=== PATIENT | female | born 1970 | race Asian ===

== ENCOUNTER 2017-04-15 16:27 | Emergency (ER) | payer BC, OTHER ==
[2017-04-15 16:35] VITALS: BP 152/91
--- NOTE | 2017-04-15 18:04 | UC ---
Complaint Female HPI - HPI Summary HPI Summary: 46 yo female with a 4-6 day hx of vaginal pressure/pain no d/c or itch no dysuria/urgency or frequency she had a hysterectomy about 2 yrs ago- indication- lg fibroid and menorrhagia - History Of Current Complaint Chief Complaint: UCGU Stated Complaint: GROIN & VAGINAL PAIN Time Seen by Provider: 04/15/17 17:42 Hx Obtained From: Patient Hx Last Menstrual Period: 06/26- Onset/Duration: Gradual Onset, Lasting Days Timing: Constant Severity Initially: Mild Severity Currently: Mild Pain Intensity: 3 Pain Scale Used: 0-10 Numeric Character: Dull Aggravating Factor(s): [place] Alleviating Factor(s): Position Associated Signs And Symptoms: Negative: Fever, Back Pain, Vaginal Bleeding/ Discharge, Vaginal Discharge, Nausea, Vomiting(# Of Episodes =), Genital Swelling, Genital Blisters, Retained [place] Body (Specify) - Allergies/Home Medications Allergies/Adverse Reactions: Allergies Allergy/AdvReac Type Severity Reaction Status Date / Time No Known Allergies Allergy Verified 04/15/17 16:35 Home Medications: Home Medications Multiple Vitamin [Multivitamins] 1 tab PO DAILY 04/15/17 [History Confirmed 12/25] PMH/Surg Hx/FS Hx/Imm Hx Previously Healthy: Yes Cardiovascular History: Hypertension - not treated - Surgical History Surgical History: None - Family History Known Family History: Positive: Cardiac Disease, Hypertension - Social History Alcohol Use: None Substance Use Type: None Smoking Status (MU): Never Smoked Tobacco Review of Systems Constitutional: Negative Skin: Negative Eyes: Negative ENT: Negative Respiratory: Negative Cardiovascular: Negative Gastrointestinal: Negative Genitourinary: Negative Motor: Negative Neurovascular: Negative Musculoskeletal: Negative Neurological: Negative Psychological: Negative Is Patient Immunocompromised?: No All Other Systems Reviewed And Are Negative: Yes Physical Exam Triage Information Reviewed: Yes Appearance: Well-Appearing, No Pain Distress, Well-Nourished Vital Signs: Initial Vital Signs Temp 98.5 F 04/15/17 16:32 Pulse 91 04/15/17 16:32 Resp 18 04/15/17 16:32 BP 152/91 04/15/17 16:32 Pulse Ox 100 04/15/17 16:32 Eyes: Positive: Conjunctiva Clear ENT: Positive: Hearing grossly normal. Negative: Nasal congestion, Nasal drainage, Tonsillar exudate, Trismus, Muffled/hoarse voice Neck: Positive: Supple, Nontender Respiratory: Positive: Lungs clear, Normal breath sounds, No respiratory distress, No accessory muscle use Cardiovascular: Positive: RRR, No Murmur Abdomen Description: Positive: Nontender, No Organomegaly, Soft. Negative: CVA Tenderness (R), CVA Tenderness (L) Musculoskeletal: Positive: ROM Intact, No Edema Neurological: Positive: Alert Psychological Exam: Normal Skin Exam: Normal Complaint Female Dx - Course Course Of Treatment: Pelvic exam done by Bridgett Rosenberg NP. ext gen normal. scant whitish d/c. absent cervix/uterus. no adenexal mass - Differential Dx/Diagnosis Provider Diagnoses: vaginal pain of uncertain cause Discharge - Discharge Plan Condition: Stable Disposition: HOME Patient Education Materials: Pelvic Pain (ED) Additional Instructions: unsure of the cause of your symptoms your BP was high today and should be rechecked by your provider you should she your provider for follow up of your vagina pressure tests are pending
--- NOTE | 2017-04-15 18:18 | UC ---
Progress - Progress Note Progress Note: call Patient Stop Keflex---Bactrim called in to pharmacy for patient Shawanda SALMON-C
== END 2017-04-15 18:25 | disposition home or self-care (01) ==
LOC: UCEAST 16:27
DX: R10.2 Pelvic and perineal pain (principal); I10 Essential (primary) hypertension
CPT/HCPCS: 87480; 87491; 87510; 87591; 87661; 99202; G0463

== ENCOUNTER 2017-08-28 11:26 | Emergency (ER) | payer BC ==
[2017-08-28 12:46] VITALS: BP 161/96
--- NOTE | 2017-08-28 13:09 | UC ---
Abdominal Pain Female HPI - HPI Summary HPI Summary: Patient presents with a past medical history of hypothyroidism. She presents with complaints of epigastrium pain onset yesterday afternoon after she ate, with associated nausea, vomited x 2, diarrhea x 2. She states the pain was severe last night, and is less severe at this time. She also reports burping. She states the pain is non-radiating. She reports she was not able to eat since yesterday, and is not tolerating anything by mouth. She denies recorded or tactile fever, chills, chest pain, dyspnea, productive cough, recent travel, or ill contact. s - History of Current Complaint Chief Complaint: UCGI Stated Complaint: ABD PAIN BURPING Time Seen by Provider: 08/28/17 12:57 Hx Obtained From: Patient Hx Last Menstrual Period: NA Onset/Duration: Sudden Onset, Lasting Hours Timing: Constant Severity Currently: Moderate Pain Intensity: 6 Location: Epigastric Radiates: No Character: Sharp Aggravating Factor(s): Movement, Deep Breaths Alleviating Factor(s): Vomiting Associated Signs and Symptoms: Positive: Nausea, Vomiting, Diarrhea - Risk Factors Ectopic Risk Factor: Negative Allergies/Adverse Reactions: Allergies Allergy/AdvReac Type Severity Reaction Status Date / Time No Known Allergies Allergy Verified 08/28/17 12:46 PMH/Surg Hx/FS Hx/Imm Hx Previously Healthy: Yes Endocrine History: Hypothyroidism - Surgical History Surgical History: None Surgery Procedure, Year, and Place: hysterectomy - Family History Known Family History: Positive: Cardiac Disease, Hypertension - Social History Lives: Alone Alcohol Use: None Substance Use Type: None Smoking Status (MU): Never Smoked Tobacco Review of Systems Constitutional: Negative Skin: Negative Eyes: Negative ENT: Negative Respiratory: Negative Cardiovascular: Negative Gastrointestinal: Vomiting, Diarrhea, Nausea Genitourinary: Negative Motor: Negative Neurovascular: Negative Musculoskeletal: Negative Neurological: Negative Psychological: Negative Is Patient Immunocompromised?: No All Other Systems Reviewed And Are Negative: Yes Physical Exam Triage Information Reviewed: Yes Appearance: Pain Distress Vital Signs: Initial Vital Signs Temp 98.4 F 08/28/17 12:38 Pulse 110 08/28/17 12:38 BP 161/96 08/28/17 12:38 Pulse Ox 96 08/28/17 12:38 Vital Signs Reviewed: Yes Eye Exam: Normal ENT Exam: Normal Neck exam: Normal Respiratory Exam: Normal Cardiovascular Exam: Normal Abdomen Description: Positive: Soft, Other: - RUQ tenderness on palpation, without rebound, guarding. Musculoskeletal Exam: Normal Skin Exam: Normal Abd Pain Female Course/Dx - Course Course Of Treatment: Patient presents with a past medical history of Hypothyriodism. She presents with complaints of RUQ and epigastrium pain, unable to tolerate anything by mouth concerning for acute choleycystis, and or ayptical cardiac symptoms. I felt it best she go directly to the ER where she can be seen and treated in a more urgert manner. She is with her son who can take her to the ER. I recommend she go directly to the ER. She verbalized understanding of an in agreement with the discharge plan. - Differential Dx/Diagnosis Differential Diagnosis: Other - abdominal pain Provider Diagnoses: abdominal pain Discharge - Discharge Plan Condition: Stable Disposition: OTHER Discharge Disposition Comment: abdominal pain Patient Education Materials: Abdominal Pain (ED) Referrals: Doris uAguste MD [Primary Care Provider] - Additional Instructions: Go directly to the ER.
== END 2017-08-28 13:10 ==
LOC: UCEAST 11:26
DX: R10.13 Epigastric pain (principal); E03.9 Hypothyroidism, unspecified
CPT/HCPCS: 99211; G0463

== ENCOUNTER 2017-08-28 13:55 | Emergency (ER) | payer BC ==
[2017-08-28 14:50] LABS: ABS Basophils 0 10^3/ul (0-0.2); ABS Eosinophils 0 10^3/ul (0-0.6); ABS Lymphocytes 1.5 10^3/ul (1.0-4.8); ABS Monocytes 0.6 10^3/ul (0-0.8); ABS Neutrophils 10.8 10^3/ul (1.5-7.7); ABS Nucleated RBC 0.1 10^3/ul; Eosinophil % 0.1 % (0-6); Hematocrit 44 % (35-47); Hemoglobin 15.1 g/dl (12.0-16.0); Lymphocyte % 11.8 % (25-47); Mean Corpuscular HGB Conc 34 g/dl (31-36); Mean Corpuscular Hemoglobin 29 pg (27-31); Mean Corpuscular Volume 85 fL (80-97); Mean Platelet Volume 9 um3 (7.4-10.4); Nucleated Red Blood Cells % 0.4; Platelet Count 272 10^3/ul (150-450); Red Cell Distribution Width 13 % (10.5-15); White Blood Count 12.9 10^3/ul (3.5-10.8)
[2017-08-28 15:04] LABS: EGFR Non-African American 107.6 (>60)
--- NOTE | 2017-08-28 15:45 | RAD ---
INDICATION: Right upper quadrant pain. COMPARISON: There are no prior studies available for comparison. TECHNIQUE: Multiple real-time images of the right upper quadrant were obtained. FINDINGS: The gallbladder appear normal. No gallbladder wall thickening or pericholecystic fluid is present. No positive sonographic recess and was noted. No intrahepatic ductal distention is seen. The common bile duct is upper limits of normal in size measuring 0.6 cm in diameter. The liver is normal in size without significant focal abnormality. The pancreas is partially obscured by overlying bowel gas. No pancreatic ductal distention is present. The right kidney is normal in size without evidence for hydronephrosis. IMPRESSION: NEGATIVE EXAM.
[2017-08-28] MEDS ORDERED: Ciprofloxacin TAB* 500 MG PO ONE (19:22)
[2017-08-28 21:39] VITALS: BP 126/72
--- NOTE | 2017-08-28 21:42 | ED ---
Venkata Sharma Thomas, scribed for Zev Betts MD on 08/28/17 at 1412 . Abdominal Pain/Female - HPI Summary HPI Summary: The patient is a 47 year old female complaining of upper abdominal pain, nausea , vomiting, and diarrhea that began last night after she ate dinner. The pain is improving since last night. The patient additionally complains of fever. She describes frequent burping. She reports oral intake since last night. - History of Current Complaint Chief Complaint: EDNauseaVomitDiarrh Stated Complaint: ABD PAIN- SENT FROM [facility] Time Seen by Provider: 08/28/17 14:06 Hx Obtained From: Patient Hx Last Menstrual Period: NA Onset/Duration: Lasting Days - 1, Still Present Timing: Constant Severity Currently: Moderate Aggravating Factor(s): Nothing Alleviating Factor(s): Nothing Associated Signs and Symptoms: Positive: Fever, Nausea, Vomiting, Diarrhea Allergies/Adverse Reactions: Allergies Allergy/AdvReac Type Severity Reaction Status Date / Time No Known Allergies Allergy Verified 08/28/17 12:46 PMH/Surg Hx/FS Hx/Imm Hx Endocrine/Hematology History: Reports: Hx Thyroid Disease - levo Denies: Hx Diabetes Cardiovascular History: Denies: Hx Hypertension Respiratory History: Denies: Hx Asthma, Hx Chronic Obstructive Pulmonary Disease (COPD) GI History: Denies: Hx Ulcer - Surgical History Surgery Procedure, Year, and Place: hysterectomy Infectious Disease History: No Infectious Disease History: Denies: Hx Hepatitis, Hx Human Immunodeficiency Virus (HIV), Traveled Outside the [place] in Last 30 Days - Family History Known Family History: Positive: Cardiac Disease, Hypertension - Social History Alcohol Use: None Substance Use Type: Reports: None Smoking Status (MU): Never Smoked Tobacco Review of Systems Positive: Fever Positive: Abdominal Pain, Vomiting, Diarrhea, Nausea, Other - Frequent burping All Other Systems Reviewed And Are Negative: Yes Physical Exam - Summary Physical Exam Summary: Appearance: The patient is well-nourished in no acute distress and in no acute pain. Skin: The skin is warm and dry and skin color reflects adequate perfusion. HEENT: The head is normocephalic and atraumatic. The pupils are equal and reactive. The conjunctivae are clear and without drainage. Nares are patent and without drainage. Mouth reveals moist mucous membranes and the throat is without erythema and exudate. The external ears are intact. The ear canals are patent and without drainage. The tympanic membranes are intact. Neck: the neck is supple with full range of motion and non-tender. There are no carotid bruits. There is no neck vein distension. Respiratory: Chest is non-tender. Lungs are clear to auscultation and breath sounds are symmetrical and equal. Cardiovascular: There is tachycardia with regular rhythm. There is no murmur or rub auscultated. There is no peripheral edema and pulses are symmetrical and equal. Abdomen: The abdomen is soft. She is mildly tender to the epigastrium. There are normal bowel sounds heard in all four quadrants and there is no organomegaly palpated. Musculoskeletal: There is no back tenderness noted. Extremities are non-tender with full range of motion. There is good capillary refill. There is no peripheral edema or calf tenderness elicited. Neurological: Patient is alert and oriented to person, place and time. The patient has symmetrical motor strength in all four extremities. Cranial nerves are grossly intact. Deep tendon reflexes are symmetrical and equal in all four extremities. Psychiatric: The patient has an appropriate affect and does not exhibit any anxiety or depression. Triage Information Reviewed: Yes Vital Signs On Initial Exam: Initial Vitals Temp Pulse Resp BP Pulse Ox 101.6 F 123 20 162/100 99 08/28/17 13:58 08/28/17 13:58 08/28/17 13:58 08/28/17 13:58 08/28/17 13:58 Vital Signs Reviewed: Yes Diagnostics - Vital Signs Vital Signs Temp Pulse Resp BP Pulse Ox 08/28/17 13:58 101.6 F 123 20 162/100 99 - Laboratory Lab Results: Lab Results 08/28/17 08/28/17 08/28/17 Range/Units 14:39 14:39 14:39 WBC 12.9 H (3.5-10.8) 10^3/ul RBC 5.20 (4.0-5.4) 10^6/ul Hgb 15.1 (12.0-16.0) g/dl Hct 44 (35-47) % MCV 85 (80-97) fL MCH 29 (27-31) pg MCHC 34 (31-36) g/dl RDW 13 (10.5-15) % Plt Count 272 (150-450) 10^3/ul MPV 9 (7.4-10.4) um3 Neut % (Auto) 83.6 H (38-83) % Lymph % (Auto) 11.8 L (25-47) % [place] % (Auto) 4.4 (1-9) % Eos % (Auto) 0.1 (0-6) % Baso % (Auto) 0.1 (0-2) % Absolute Neuts (auto) 10.8 H (1.5-7.7) 10^3/ul Absolute Lymphs (auto) 1.5 (1.0-4.8) 10^3/ul Absolute Monos (auto) 0.6 (0-0.8) 10^3/ul Absolute Eos (auto) 0 (0-0.6) 10^3/ul Absolute Basos (auto) 0 (0-0.2) 10^3/ul Absolute Nucleated RBC 0.1 10^3/ul Nucleated RBC % 0.4 Sodium 133 (133-145) mmol/L Potassium 3.5 (3.5-5.0) mmol/L Chloride 101 (101-111) mmol/L Carbon Dioxide 22 (22-32) mmol/L Anion Gap 10 (2-11) mmol/L BUN 10 (6-24) mg/dL Creatinine 0.60 (0.51-0.95) mg/dL Est GFR ( Amer) 138.4 (>60) Est GFR (Non-Af Amer) 107.6 (>60) BUN/Creatinine Ratio 16.7 (8-20) Glucose 104 H (70-100) mg/dL Lactic Acid 1.0 (0.5-2.0) mmol/L Calcium 9.7 (8.6-10.3) mg/dL Total Bilirubin 1.10 H (0.2-1.0) mg/dL AST 34 (13-39) U/L ALT 37 (7-52) U/L Alkaline Phosphatase 71 (34-104) U/L C-Reactive Protein 8.86 H (< 5.00) mg/L Total Protein 9.2 H (6.4-8.9) g/dL Albumin 5.1 (3.2-5.2) g/dL Globulin 4.1 H (2-4) g/dL Albumin/Globulin Ratio 1.2 (1-3) Lipase 14 (11.0-82.0) U/L Influenza A (Rapid) (Negative) Influenza B (Rapid) (Negative) 08/28/17 08/28/17 Range/Units 17:52 19:15 WBC (3.5-10.8) 10^3/ul RBC (4.0-5.4) 10^6/ul Hgb (12.0-16.0) g/dl Hct (35-47) % MCV (80-97) fL MCH (27-31) pg MCHC (31-36) g/dl RDW (10.5-15) % Plt Count (150-450) 10^3/ul MPV (7.4-10.4) um3 Neut % (Auto) (38-83) % Lymph % (Auto) (25-47) % [place] % (Auto) (1-9) % Eos % (Auto) (0-6) % Baso % (Auto) (0-2) % Absolute Neuts (auto) (1.5-7.7) 10^3/ul Absolute Lymphs (auto) (1.0-4.8) 10^3/ul Absolute Monos (auto) (0-0.8) 10^3/ul Absolute Eos (auto) (0-0.6) 10^3/ul Absolute Basos (auto) (0-0.2) 10^3/ul Absolute Nucleated RBC 10^3/ul Nucleated RBC % Sodium (133-145) mmol/L Potassium (3.5-5.0) mmol/L Chloride (101-111) mmol/L Carbon Dioxide (22-32) mmol/L Anion Gap (2-11) mmol/L BUN (6-24) mg/dL Creatinine (0.51-0.95) mg/dL Est GFR ( Amer) (>60) Est GFR (Non-Af Amer) (>60) BUN/Creatinine Ratio (8-20) Glucose (70-100) mg/dL Lactic Acid 1.5 (0.5-2.0) mmol/L Calcium (8.6-10.3) mg/dL Total Bilirubin (0.2-1.0) mg/dL AST (13-39) U/L ALT (7-52) U/L Alkaline Phosphatase (34-104) U/L C-Reactive Protein (< 5.00) mg/L Total Protein (6.4-8.9) g/dL Albumin (3.2-5.2) g/dL Globulin (2-4) g/dL Albumin/Globulin Ratio (1-3) Lipase (11.0-82.0) U/L Influenza A (Rapid) Negative (Negative) Influenza B (Rapid) Negative (Negative) Result Diagrams: 08/28/17 14:39 08/28/17 14:39 Lab Statement: Any lab studies that have been ordered have been reviewed, and results considered in the medical decision making process. - Additional Comments Diagnostic Additional Comments: Ultrasound Gallbladder. Interpreted by radiologist. Impression: "negative examination" Dr. Betts has reviewed this report. Abdominal Pain Fem Course/Dx - Course Course Of Treatment: Ms. Mera presents with N/V and abdominal pain since she had dinner last night. She also had an episode of diarrhea. She is starting to feel better. He W/U here was WNL including GB U/S. On re-exam she had very little abdominal pain and no further vomiting since last night, however, she had several episodes of watery diarrhea here in the ED. Stool was obtained and she did have fecal lactoferrin positive and I will treat her with Cipro pending C&S. - Diagnoses Provider Diagnoses: Gastroenteritis Discharge - Discharge Plan Condition: Stable Disposition: HOME Prescriptions: Ciprofloxacin TAB* [Cipro Tab*] 500 mg PO BID #20 tab Patient Education Materials: Gastroenteritis (ED) Referrals: Doris Auguste MD [Primary Care Provider] - 3 Days Additional Instructions: Follow up with your primary care physician in three days. Return to the emergency department for any new or worsening symptoms. The documentation as recorded by the Venkata arnold Thomas accurately reflects the service I personally performed and the decisions made by me, Zev Betts MD.
--- NOTE | 2017-08-29 09:17 | PN ---
Progress Note - Progress Note Date of Service: 08/28/17 Note: diagnosed with gastroenteritis. treated with cipro at discharge. stool culture negative for c diff. positive for fecal lactoferrin. will wait for rest of stool culture results. no further action required at this time
== END 2017-08-28 21:39 | disposition home or self-care (01) ==
LOC: ED 13:55
DX: K52.9 Noninfective gastroenteritis and colitis, unspecified (principal); R50.9 Fever, unspecified; E07.9 Disorder of thyroid, unspecified; Z90.710 Acquired absence of both cervix and uterus
CPT/HCPCS: 36415; 76705; 80053; 82272; 83605; 83630; 83690; 85025; 86140; 87040; 87045; 87046; 87328; 87329; 87493; 87502; 87899; 99283; A9270-GY

== ENCOUNTER 2018-04-13 16:56 | Emergency (ER) | payer SELFPAY ==
[2018-04-13 21:34] LABS: ABS Basophils 0 10^3/ul (0-0.2); ABS Eosinophils 0 10^3/ul (0-0.6); ABS Lymphocytes 3.4 10^3/ul (1.0-4.8); ABS Monocytes 0.7 10^3/ul (0-0.8); ABS Nucleated RBC 0 10^3/ul; Eosinophil % 0.5 % (0-6); Hematocrit 41 % (35-47); Hemoglobin 14.4 g/dl (12.0-16.0); Lymphocyte % 37.4 % (25-47); Mean Corpuscular HGB Conc 35 g/dl (31-36); Mean Corpuscular Hemoglobin 30 pg (27-31); Mean Corpuscular Volume 84 fL (80-97); Mean Platelet Volume 8.1 um3 (7.4-10.4); Nucleated Red Blood Cells % 0.2; Platelet Count 294 10^3/ul (150-450); Red Blood Count 4.88 10^6/ul (4.00-5.40); Red Cell Distribution Width 13 % (10.5-15); White Blood Count 9.2 10^3/ul (3.5-10.8)
[2018-04-13 21:57] LABS: EGFR Non-African American 116.5 (>60)
[2018-04-13] MEDS ORDERED: Ibuprofen TAB* 800 MG PO ONE (22:11)
[2018-04-13] MEDS ORDERED: traMADol TAB* 50 MG PO ONE (22:11)
--- NOTE | 2018-04-13 22:16 | ED ---
HPI Chest Pain - HPI Summary HPI Summary: The pt is a 47 y/o [facility] c/o intermittent midsternal CP since 1 week ago. She notes intermittent L breast pain but denies N/V/D. The episodes last about 20 minutes. Her last mammogram was 2 months ago and was negative. She has not had a stress test. The pt took Advil and Ibuprofen to no relief. - History of Current Complaint Chief Complaint: EDChestPainROMI Time Seen by Provider: 04/13/18 21:51 Hx Obtained From: Patient Hx Last Menstrual Period: NA Onset/Duration: Started Weeks Ago - 1 week, Still Present Timing: Intermittent - 20 minute episodes Current Severity: Mild Pain Intensity: 2 Pain Scale Used: 0-10 Numeric Chest Pain Location: Mid Sternal Chest Pain Radiates: No Alleviating Factor(s): Nothing Associated Signs and Symptoms: Positive: Negative - Vomiting , Diarrhea, Other: - L breast pain. Negative: Nausea - Allergy/Home Medications Allergies/Adverse Reactions: Allergies Allergy/AdvReac Type Severity Reaction Status Date / Time No Known Allergies Allergy Verified 04/13/18 17:12 PMH/Surg Hx/FS Hx/Imm Hx Previously Healthy: No Endocrine/Hematology History: Reports: Hx Thyroid Disease - levo Denies: Hx Diabetes Cardiovascular History: Denies: Hx Hypertension Respiratory History: Denies: Hx Asthma, Hx Chronic Obstructive Pulmonary Disease (COPD) GI History: Denies: Hx Ulcer - Surgical History Surgery Procedure, Year, and Place: hysterectomy Infectious Disease History: No Infectious Disease History: Denies: Hx Hepatitis, Hx Human Immunodeficiency Virus (HIV), Traveled Outside the [place] in Last 30 Days - Family History Known Family History: Positive: Cardiac Disease, Hypertension - Social History Occupation: Employed Full-time Lives: With Family Alcohol Use: None Substance Use Type: Reports: None Smoking Status (MU): Never Smoked Tobacco Review of Systems Constitutional: Other - Positive: L breast pain Positive: Chest Pain - Mid sternal Negative: Vomiting, Diarrhea, Nausea All Other Systems Reviewed And Are Negative: Yes Physical Exam - Summary Physical Exam Summary: VITAL SIGNS: Reviewed. GENERAL: Patient is a well-developed and nourished female who is lying comfortable in the stretcher. Patient is not in any acute respiratory distress. HEAD AND FACE: No signs of trauma. No ecchymosis, hematomas or skull depressions. No sinus tenderness. EYES: PERRLA, EOMI x 2, No injected conjunctiva, no nystagmus. EARS: Hearing grossly intact. Ear canals and tympanic membranes are within normal limits. MOUTH: Oropharynx within normal limits. NECK: Supple, trachea is midline, no adenopathy, no JVD, no carotid bruit, no c- spine tenderness, neck with full ROM. CHEST: Symmetric, no tenderness at palpation LUNGS: Clear to auscultation bilaterally. No wheezing or crackles. CVS: Regular rate and rhythm, S1 and S2 present, no murmurs or gallops appreciated. ABDOMEN: Soft, non-tender. No signs of distention. No rebound no guarding, and no masses palpated. Bowel sounds are normal. EXTREMITIES: FROM in all major joints, no edema, no cyanosis or clubbing. NEURO: Alert and oriented x 3. No acute neurological deficits. Speech is normal and follows commands. SKIN: Dry and warm Triage Information Reviewed: Yes Vital Signs On Initial Exam: Initial Vitals Temp Pulse Resp BP Pulse Ox 97.6 F 91 16 187/85 99 04/13/18 17:08 04/13/18 17:08 04/13/18 17:08 04/13/18 17:08 04/13/18 17:08 Vital Signs Reviewed: Yes Diagnostics - Vital Signs Vital Signs Temp Pulse Resp BP Pulse Ox 04/13/18 21:29 99.2 F 74 16 161/85 100 04/13/18 19:11 98.9 F 88 16 179/86 100 04/13/18 17:08 97.6 F 91 16 187/85 99 - Laboratory Lab Results: Lab Results 04/13/18 04/13/18 04/13/18 Range/Units 21:22 21:22 21:22 WBC 9.2 (3.5-10.8) 10^3/ul RBC 4.88 (4.00-5.40) 10^6/ul Hgb 14.4 (12.0-16.0) g/dl Hct 41 (35-47) % MCV 84 (80-97) fL MCH 30 (27-31) pg MCHC 35 (31-36) g/dl RDW 13 (10.5-15) % Plt Count 294 (150-450) 10^3/ul MPV 8.1 (7.4-10.4) um3 Neut % (Auto) 54.5 (38-83) % Lymph % (Auto) 37.4 (25-47) % [place] % (Auto) 7.2 H (0-7) % Eos % (Auto) 0.5 (0-6) % Baso % (Auto) 0.4 (0-2) % Absolute Neuts (auto) 5.0 (1.5-7.7) 10^3/ul Absolute Lymphs (auto) 3.4 (1.0-4.8) 10^3/ul Absolute Monos (auto) 0.7 (0-0.8) 10^3/ul Absolute Eos (auto) 0 (0-0.6) 10^3/ul Absolute Basos (auto) 0 (0-0.2) 10^3/ul Absolute Nucleated RBC 0 10^3/ul Nucleated RBC % 0.2 Sodium 139 (135-145) mmol/L Potassium 4.1 (3.5-5.0) mmol/L Chloride 105 (101-111) mmol/L Carbon Dioxide 28 (22-32) mmol/L Anion Gap 6 (2-11) mmol/L BUN 9 (6-24) mg/dL Creatinine 0.56 (0.51-0.95) mg/dL Est GFR ( Amer) 141.0 (>60) Est GFR (Non-Af Amer) 116.5 (>60) BUN/Creatinine Ratio 16.1 (8-20) Glucose 100 (70-100) mg/dL Lactic Acid 0.8 (0.5-2.0) mmol/L Calcium 9.8 (8.6-10.3) mg/dL Total Bilirubin 0.70 (0.2-1.0) mg/dL AST 29 (13-39) U/L ALT 29 (7-52) U/L Alkaline Phosphatase 59 (34-104) U/L Troponin I 0.00 (<0.04) ng/mL Total Protein 7.9 (6.4-8.9) g/dL Albumin 4.7 (3.2-5.2) g/dL Globulin 3.2 (2-4) g/dL Albumin/Globulin Ratio 1.5 (1-3) Result Diagrams: 04/13/18 21:22 10/04/18 21:22 Lab Statement: Any lab studies that have been ordered have been reviewed, and results considered in the medical decision making process. - Radiology CXR Radiology Interpretation Completed By: ED Physician - IMPRESSION: No acute processes.Pending official report - EKG 17:23 Cardiac Rate: NL - 92 bpm EKG Rhythm: Sinus Rhythm EKG Interpretation: Normal axis. Normal interval. No ischemic changes Chest Pain Course/Dx - Course Course Of Treatment: A 47 year-old F presents to the ED with a CC of intermittent midsternal CP since 1 week ago. She notes intermittent L breast pain but denies N/V/D. The episodes last about 20 minutes. Her last mammogram was 2 months ago and was negative. She has not had a stress test. The pt took Advil and Ibuprofen to no relief. A physical exam is unremarkable. A CXR and EKG are both unremarkable. Patient will be discharged with a final Dx of atypical CP with instructions to follow up with a candy maker helper for a stress test. Pt is agreeable with this plan. Allergies noted. - Diagnoses Provider Diagnoses: Atypical chest pain Discharge - Sign-Out/Discharge Documenting (check all that apply): Patient Departure - dc - Discharge Plan Condition: Stable Disposition: HOME Prescriptions: Ibuprofen TAB* [Motrin TAB* 800 MG] 800 mg PO Q6H PRN #30 tab PRN Reason: Pain Patient Education Materials: Chest Pain (ED) Referrals: Doris Auguste MD [Primary Care Provider] - 2 Days Yashira Trevino MD [Medical Doctor] - Additional Instructions: You need a stress test done I recommend you see a candy maker helper as out patient. RETURN TO THE EMERGENCY DEPARTMENT FOR CHANGING OR WORSENING SYMPTOMS. FOLLOW UP WITH PCP IN 1-2 DAYS. - Attestation Statements Document Initiated by Scribe: Yes Documenting Scribe: Sakina George Provider For Whom Scribe is Documenting (Include Credential): Dr. Zhanna Colon MD Scribe Attestation: Sakina Sharma, scribed for Dr. Zhanna Colon MD on 04/13/18 at 2310.
[2018-04-13 23:23] VITALS: BP 112/78
--- NOTE | 2018-04-14 07:49 | RAD ---
HISTORY: chest pain COMPARISONS: July 22, 2013 VIEWS: 4: Frontal dual-energy and lateral views of the chest. FINDINGS: CARDIOMEDIASTINAL SILHOUETTE: The cardiomediastinal silhouette is normal. SUZETTE: The suzette are normal. PLEURA: The costophrenic angles are sharp. No pleural abnormalities are noted. LUNG PARENCHYMA: The lungs are clear. ABDOMEN: The upper abdomen is clear. There is no subphrenic gas. BONES AND SOFT TISSUES: No bone or soft tissue abnormalities are noted. OTHER: None. IMPRESSION: NO ACTIVE CARDIOPULMONARY DISEASE. R0
== END 2018-04-13 23:24 | disposition home or self-care (01) ==
LOC: ED 16:56
DX: R07.89 Other chest pain (principal)
CPT/HCPCS: 36415; 71046; 80053; 83605; 84484; 85025; 93005; 99283; A9270-GY

== ENCOUNTER 2018-12-07 16:03 | Emergency (ER) | payer OTHER ==
[2018-12-07 16:24] VITALS: BP 143/81
--- NOTE | 2018-12-07 16:43 | UC ---
Dizzy HPI HPI Summary: One week history of malaise with no specific symptoms. Has some coryza, occasional dry cough, fatigue. Worked a lot of hours last weekend (part of [employer] business, and did feel better when she was in [place] the past 2 days. No headache, sore throat, shortness of breath, rash, sweats, weight loss. Appetite is normal, had one day with loose stools, no vomiting, which resolved. Hx of hypthyroidism, does not know when her TSH was last checked. Was hoping for a pill to make her stronger. Hx of anemia pre hysterectomy, none since. Has been able to work, postural vitals are normal - History Of Current Complaint Chief Complaint: UCDizziness Stated Complaint: DIZZY, WEAK Time Seen by Provider: 12/07/18 16:30 Hx Obtained From: Patient Hx Last Menstrual Period: NA Onset/Duration: Gradual Onset, Lasting Days - 7 Timing: Hours Severity Currently: Mild Pain Intensity: 0 Character: Lightheaded, Weak Aggravating Factor(s): Nothing Alleviating Factor(s): Nothing Associated Signs And Symptoms: Negative: Vomiting, Diaphoresis, Chest Pain, SOB , Unsteady Gait, Visual Changes - Risk Factors Cardiac Risk Factors: Family History CVA Risk Factor: Negative - Allergies/Home Medications Allergies/Adverse Reactions: Allergies Allergy/AdvReac Type Severity Reaction Status Date / Time No Known Allergies Allergy Verified 12/07/18 16:12 Home Medications: Home Medications Ibuprofen [Advil] 400 mg PO Q6HR PRN 12/07/18 [History Confirmed 12/07/18] [email or web address] ER TAB [Mucinex*] 1,200 mg PO BID 12/07/18 [History Confirmed ] PMH/Surg Hx/FS Hx/Imm Hx Previously Healthy: Yes Endocrine History: Hypothyroidism - Surgical History Surgical History: None Surgery Procedure, Year, and Place: hysterectomy - Family History Known Family History: Positive: Cardiac Disease - father had OH in early 50's, Hypertension - Social History Lives: With Family Alcohol Use: None Substance Use Type: None Smoking Status (MU): Never Smoked Tobacco Review of Systems All Other Systems Reviewed And Are Negative: Yes Constitutional: Positive: Fatigue, Other - no polyuria, polydipsia or sweats. Skin: Positive: Negative Eyes: Positive: Negative ENT: Positive: Nasal Discharge Respiratory: Positive: Cough - occasional, dry Cardiovascular: Positive: Negative. Negative: Palpitations, Chest Pain Gastrointestinal: Negative: Abdominal Pain Genitourinary: Negative: Dysuria, Urgency Motor: Negative: Decreased ROM Neurovascular: Negative: Decreased Sensation Musculoskeletal: Negative: Arthralgia, Edema Neurological: Negative: Headache Psychological: Positive: Negative Is Patient Immunocompromised?: No Physical Exam Triage Information Reviewed: Yes Appearance: Well-Appearing, No Pain Distress, Well-Nourished Vital Signs: Initial Vital Signs Temp 98.3 F 12/07/18 16:10 Pulse 72 12/07/18 16:10 Resp 18 12/07/18 16:10 BP 146/81 12/07/18 16:10 Pulse Ox 99 12/07/18 16:10 Eyes: Positive: Conjunctiva Clear ENT: Positive: Pharynx normal, Uvula midline. Negative: Tonsillar swelling Neck: Positive: Supple, Nontender, No Lymphadenopathy Respiratory: Positive: Lungs clear, Normal breath sounds Cardiovascular: Positive: RRR, No Murmur Abdomen Description: Positive: Nontender, No Organomegaly, Soft Bowel Sounds: Positive: Present Musculoskeletal Exam: Normal Neurological Exam: Normal Neurological: Positive: Alert, Muscle Tone Normal Psychological Exam: Normal Skin Exam: Normal Dizzy Course/Dx - Course Course Of Treatment: rest, begin investigations with screening labs, check TSH - Differential Dx/Diagnosis Differential Diagnosis/HQI/PQRI: Anxiety, Labyrinthitis, Metabolic Abnormality, Other - fatigue/overwork Provider Diagnosis: Fatigue Discharge - Sign-Out/Discharge Documenting (check all that apply): Patient Departure All imaging exams completed and their final reports reviewed: No Studies - Discharge Plan Condition: Good Disposition: HOME Patient Education Materials: Weakness (ED) Referrals: Doris Auguste MD [Primary Care Provider] - Additional Instructions: Your overall exam is normal without any focal findings of infection. I suggest increased rest and fluids; follow up with Dr. Auguste if you continue to feel unwell. Lab results will be available tomorrow afternoon. You will be called if there are abnormalities. Please share a copy with Dr. Auguste. - Billing Disposition and Condition Condition: GOOD Disposition: Home
[2018-12-08 11:04] LABS: ABS Lymphocytes 2.8 10^3/ul (1.0-4.8); ABS Monocytes 0.5 10^3/ul (0-0.8); ABS Neutrophils 3.6 10^3/ul (1.5-7.7); Eosinophil % 0.6 %; Hematocrit 36 % (35-47); Hemoglobin 12.4 g/dL (12.0-16.0); Lymphocyte % 40.2 %; Mean Corpuscular HGB Conc 34 g/dL (31-36); Mean Corpuscular Hemoglobin 29 pg (27-31); Mean Corpuscular Volume 85 fL (80-97); Mean Platelet Volume 9.6 fL (7.4-10.4); Nucleated Red Blood Cells % 0.1; Platelet Count 264 10^3/uL (150-450); Red Blood Count 4.27 10^6 /uL (3.70-4.87); Red Cell Distribution Width 13 % (10.5-15); White Blood Count 7.1 10^3/uL (3.5-10.8)
[2018-12-08 11:10] LABS: Albumin 4.3 g/dL (3.2-5.2); Calcium 9.2 mg/dL (8.6-10.3); Potassium 4.2 mmol/L (3.5-5.0); Total Bilirubin 0.5 mg/dL (0.2-1.0)
[2018-12-08 11:16] LABS: Albumin/Globulin Ratio 1.4 (1-3); BUN/Creatinine Ratio 20.4 (8-20); EGFR African American 146.4 (>60); Total Protein 7.3 g/dL (6.4-8.9)
[2018-12-08 11:28] LABS: TSH (Thyroid Stimulating Horm) 0.3 mcIU/mL (0.34-5.60)
== END 2018-12-07 17:13 | disposition home or self-care (01) ==
LOC: UCEAST 16:03
DX: R53.83 Other fatigue (principal); J00 Acute nasopharyngitis [common cold]; R05 Cough
CPT/HCPCS: 36415; 80053; 84443; 85025; 99211; G0463